=== PATIENT | female | born 1955 | race African-American/Black ===

== ENCOUNTER 2016-11-05 18:53 | Emergency (ER) | payer SELFPAY ==
[~2016-11-05] VITALS: Ht 182.9 cm; Wt 133.4 kg
[2016-11-05 19:13] VITALS: BP 116/73
[2016-11-05] MEDS ORDERED: MOTRIN800 MG PO (20:05)
[2016-11-05] MEDS ORDERED: VALIUM5 MG PO (20:05)
[2016-11-05] MEDS ORDERED: NORCO 7.5/321 TABLET PO (20:05)
[2016-11-05] MEDS ORDERED: LIDODERM 5% P1 PATCH TD (20:05)
== END 2016-11-05 20:30 | disposition home or self-care (01) ==
LOC: EME 18:53
DX: S39.012A Strain of muscle, fascia and tendon of lower back, initial encounter (principal); X50.0XXA Overexertion from strenuous movement or load, initial encounter; Y99.0 Civilian activity done for income or pay; G89.29 Other chronic pain; M25.561 Pain in right knee
CPT/HCPCS: 99281; 99283; J3010